=== PATIENT | female | born 1995 | race Caucasian/White ===

== ENCOUNTER 2023-10-05 00:58 | Day surgery (SDC) | payer OTHER, SELFPAY ==
[2023-10-04 08:28] VITALS: BMI 21.1
--- NOTE | 2023-10-04 08:34 | PC.NURSE ---
Report to the Outpatient Waiting Room, entrance under the green pavilion located off [facility], at time 0830 on date 10/05/23. Planned Procedure Time: 1030. Time changes happen often and if your time is changed the preop area will call you the afternoon before. - You and your visitor will be asked to self-screen and do not enter if you have any COVID symptoms. - A mask is optional within the hospital at this time. Patients may have clear liquids (water, carbonated beverages, clear teas, apple juice) until 3 hours prior to surgery with a maximum of 20 ounces. - No food from midnight until time of surgery Take the following medications with a SIP of water the morning of surgery: NONE DO NOT STOP ANY OF YOUR OTHER PRESCRIPTION MEDICATIONS PRIOR TO SURGERY ?EXCEPT THE FOLLOWING Medications to discontinue per physician: N/A Date to take last dose: N/A Please no make-up, nail urdu, hairspray, perfume, deodorant, or body powder the day of surgery. No jewelry (including any body piercings) or valuables the day of surgery, leave them at home. Please take a shower or bath the night before, or the morning of, surgery with an antibacterial soap. Wear comfortable, loose fitting clothing. - Jewelry must be removed prior to entering the operating room. Rings and piercings that are not removed may be cut off. - The hospital will not accept responsibility for valuables. - Please leave all valuables, including medications, at home the day of surgery. If you are going home after surgery, a licensed feeder driver must drive you home. - NO public transportation without another adult if you receive anesthesia. - We recommend that an adult stay with you for 24 hours following discharge. - We also recommend that you do not drive, make important decision, drink alcoholic beverages, or take any drugs that were not prescribed by your health care provider for at least 24 hours after your discharge time. Follow any additional instructions given to you from your surgeon. If you or anyone in your household have experienced Covid symptoms in the past week, please notify your surgeon or the nurse liaison at the phone number below for possible testing. Telephone instructions given to PT - DANNY BULLARD and asked if any additional questions and then verbalized understanding. Patient advised to call surgeon office or pre surgery nurse liaison [phone] if any additional questions.
[2023-10-05] VITALS (15 sets, daily range): BP systolic 89–116; BP diastolic 40–75; PULSE 66–95; RESP 14–20; TEMP 36.2–37.3; O2SAT 95–100
--- NOTE | 2023-10-05 08:38 | WPDHPUPDATE1 ---
History and Physical Update Update Date/Time: 10/05/23 08:38 History and Physical has been reviewed, including an updated exam of the patient. There are NO changes in the patient's condition. Risks, benefits, and alternatives have been discussed and questions answered. Patient agrees to proceed with procedure.
[2023-10-05] MEDS: ACETAMINOPHEN 500 MG TABLET 1000 MG PO (08:43)
[2023-10-05] MEDS: KETOROLAC 15 MG/ML VIAL (*BKC) IV PUSH (09:17)
[2023-10-05 09:21] LABS: Alanine Aminotransferase 29 U/L (6-35); Albumin Level 4.8 g/dL (3.5-5.1); Alkaline Phosphatase 62 U/L (38-126); Amylase 76 U/L (30-110); Aspartate Amino Transferase 28 U/L (14-36); Lipase 116 U/L (23-300)
--- NOTE | 2023-10-05 09:35 | WPDANESEPPF ---
Anes - Initial Pre Proc Eval Procedure: Operation Date: 10/05/23 10:30 Proposed Procedures p Laparoscopic Cholecystectomy - Cindy Boss MD Date/Time: 10/05/23 09:35 Surgeon: Cindy Boss MD Pre Op Diagnosis: chronic cholecystitis Patient Data Age: 28 Gender: F Height: 1.68 m Weight: 59 kg Last Vital Signs Temp 99.1 F 10/05/23 08:53 Pulse 75 10/05/23 08:53 Resp 16 10/05/23 08:53 BP 116/71 10/05/23 08:53 Pulse Ox 100 10/05/23 08:53 O2 Del Method Room Air 10/05/23 08:53 Allergies Allergy/AdvReac Type Severity Reaction Status Date / Time latex Allergy Rash Verified 10/05/23 08:41 Home Medications Medication Instructions Recorded Confirmed Type cetirizine 10 mg capsule (All Day 10 mg PO DAILY PRN Allergy Symptoms 10/03/23 10/04/23 History Allergy (cetirizine)) cholecalciferol (vitamin D3) 1,250 1,250 mcg PO WEEKLY 10/03/23 10/04/23 History mcg (50,000 unit) capsule fluticasone propionate 50 1 spray intranasal DAILY 10/03/23 10/04/23 History mcg/actuation nasal spray,suspension (Flonase Allergy Relief) meclizine 25 mg tablet 25 mg PO BID PRN Vertigo 10/03/23 10/04/23 History ondansetron 4 mg disintegrating 4 mg PO Q8H 10/03/23 10/04/23 History tablet pantoprazole 20 mg tablet,delayed 20 mg PO QAM 10/03/23 10/04/23 History release Laboratory Tests 10/05/23 09:06 Total Bilirubin 1.0 mg/dL (0.2-1.3) Direct Bilirubin 0.0 mg/dL (0-0.3) AST 28 U/L (14-36) ALT 29 U/L (6-35) Alkaline Phosphatase 62 U/L (38-126) Total Protein 9.0 H g/dL (6.3-8.2) Albumin 4.8 g/dL (3.5-5.1) Amylase 76 U/L (30-110) Lipase 116 U/L (23-300) Patient hx anesthesia problems: none Family hx anesthesia problems: none Results Review: All pre-operative results and documents have been reviewed as part of the pre-operative evaluation. [facility] Past Medical History Medical History (Updated 10/03/23 @ 13:55 by Meri Madison CMA) Anxiety Surgical History Surgical History (Updated 10/03/23 @ 13:30 by Natty Ashley MA) History of placement of ear tubes Family History Family History (Updated 10/03/23 @ 13:30 by aNtty Ashley MA) Other Diabetes mellitus Heart disease Hypertension Social History Social History (Updated 10/03/23 @ 13:31 by Natty Ashley MA) Smoking packs per day: 0.5 Smoking cigarettes per day: 10.0 Years smoked: 1 Smoking pack-years: 0.50 Smoking status: Former smoker Tobacco type: cigarettes Smoking end date: 11/27/16 Alcohol intake: never Substance use: never Substance use type: does not use Living arrangements: with family Occupation/Education: occupation Spiritual care concerns: No Anes - Eval Final PreProcedure Day of Procedure 10/05/23 09:35 Patient weight: normal Heart: regular rate and rhythm Lungs: clear to auscultation Airway: Mallampati scale class II Neurological: alert and oriented Last oral intake: >/= 8 hours ASA classification: II Emergent: no Anesthetic plan: proceed Anesthesia type and monitoring: general ETT and standard monitoring Results Review: All pre-operative results and documents have been reviewed as part of the pre-operative evaluation. Informed Consent: The patient's anesthetic plan and its attendant risks and benefits were discussed with the patient/family/POA. Questions were solicited and answers provided to the satisfaction of the patient/family/POA.
[2023-10-05] MEDS: ceFAZolin 2 GM/D5W 50 ML 2 GM/50 ML BAG IVPB (09:51)
[2023-10-05] MEDS: BUPIVACAINE/EPINEPHRINE 0.5% 10 ML VIAL 30 ML INFILTRATE (10:19)
--- NOTE | 2023-10-05 10:30 | W.PM.PROC2 ---
Procedure Note - Detailed Date of Procedure 10/05/23 Pre-op Diagnosis chronic cholecystitis Post-op Diagnosis Same Procedure Performed Laparoscopic cholecystectomy Surgeon Cindy Boss MD Anesthesia General Indications 28-year-old female presented to the office complaining of postprandial right upper quadrant abdominal pain associated with nausea and vomiting. Workup including imaging significant for chronic cholecystitis. Findings chronic cholecystitis Description of Procedure The patient was taken to the operating room placed in the supine position. After adequate induction of general anesthesia, the patient was prepped and draped in normal sterile fashion. A time-out was then performed to verify the patient's identity as well as the procedure being performed. I then made a 5 mm incision in the infraumbilical region. Through this, a Veress needle was placed into the peritoneal cavity and CO2 gas was then insufflated. After adequate pneumoperitoneum was achieved, the Veress needle was removed and a 5 mm optiview trocar was placed through this incision under direct visualization. I then placed the laparoscope through this trocar site and under direct visualization placed a further 12 mm subxiphoid port as well as 2 additional 5 mm ports in the right upper abdomen. The gallbladder was then identified and was noted to be moderately inflamed and distended. I was able to place a grasper at the dome of the gallbladder and this was retracted anterior and cephalad up over the liver. A 2nd retractor was then placed at the infundibulum and retracted laterally, this allowed visualization of the triangle of Calot. I then was able to visualize the cystic duct in its entirety from its proximal insertion into the gallbladder, to its distal junction with the common hepatic/common bile duct junction. At this point, I carefully skeletonized the proximal cystic duct with the [place] dissector. I then clipped and transected the proximal cystic duct. Next I visualized the cystic artery. Again the artery was skeletonized, clipped, and transected. I then used the Bovie cautery to take down the peritoneal attachments of the gallbladder off the liver bed. Once the gallbladder specimen was completely detached, an endo-pouch was placed through the 12 mm port site. I then placed the gallbladder specimen into the Endo pouch and removed the endo-pouch from the 12 mm port site. The specimen will now be sent to pathology for further review. I then copiously irrigated the right upper quadrant. Hemostasis was noted in the liver bed, the clips were noted to be in good position on both the cystic duct stump and the cystic artery stump. No other pathology was noted in the right upper quadrant. I then moved the laparoscope to the subxiphoid port. No iatrogenic injury or other pathology was noted in the lower abdomen. I then closed the 12 mm trocar site under direct visualization using the Lester cone and 0 Vicryl suture. At this point, the abdomen was desufflated and all ports removed. All port sites were then closed with 4.O Monocryl subcuticular sutures. Dermabond was placed on each incision. The patient tolerated the procedure well, was extubated in the operating room postoperative and will be transferred to the recovery room in stable condition Estimated Blood Loss 5 Drains No Packing No Pathology Yes Complications No immediate complications Condition Stable Disposition PACU [facility] Billing Surgery - Charge Forward: Surgery Billing
[2023-10-05] MEDS: LACTATED RINGERS 1,000 ML 30 ML IV CONT ×3 (10:43→12:40)
[2023-10-05] MEDS: fentaNYL CITRATE INJ (*CRX) 100 MCG/2 ML VIAL 25 MCG IV PUSH ×6 (11:00→12:41)
[2023-10-05] MEDS: diphenhydrAMINE HCl INJ 50 MG/ML VIAL 12.5 MG IV PUSH ×2 (11:11→11:41)
[2023-10-05] MEDS: HALOPERIDOL LACTATE 5 MG/ML VIAL 1 MG IV PUSH ×2 (13:35→13:58)
[2023-10-05] MEDS: oxyCODONE HCL (*CRX) 5 MG TAB IR PO (13:57)
== END 2023-10-05 14:48 | disposition home or self-care (01) ==
PROVIDERS: Visit Provider Surgery
PROC: 0FT44ZZ Resection of Gallbladder, Percutaneous Endoscopic Approach (ICD-10-PCS; CPT 47562; principal; 2023-10-05 10:30)
DX: K81.1 Chronic cholecystitis (principal); Z87.891 Personal history of nicotine dependence
CPT/HCPCS: 47562; 36415; 80076; 82150; 83690; 86850; 86900; 86901; 88304; A9270; J0690; J1100; J1200; J1630; J1885; J2250; J2371; J2405; J2704; J3010; J7030; J7120